=== PATIENT | male | born 1945 | race Caucasian/White ===

== ENCOUNTER → 2019-06-29 | Outpatient (CLI) | payer MEDICARE, OTHER ==
[~2019-06-29] MED LIST: ALBU8.5H5 INH; ASPI-496 PO; ATEN25TA PO; CHOL10003 PO; CHOL40002 PO; EZET1TAB30 PO; FLUT1BLS3 IH; FLUT1DIS3 INH; GLUC-111 PO; IBUP200C8 PO; MONT10TA6 PO; PSYL0.5215 PO; SAW/1TAB2 PO; SAW100PO PO; VALA500T4 PO; VITA1CAP7 PO
[2019-06-29 11:26] LABS: ALBUMIN 4.2 g/dL (3.4-5.0); ANION GAP 6 mmol/L (5-15); CALCIUM 9.3 mg/dL (8.5-10.1); CHLORIDE 108 mmol/L (98-107)
[2019-06-29 11:29] LABS: ALANINE AMINOTRANSFERASE 36 U/L (12-78); ALKALINE PHOSPHATASE 98 U/L (45-117); BILIRUBIN,TOTAL 0.8 mg/dL (0.2-1.0); CREATININE 1.03 mg/dL (0.7-1.3); TOTAL PROTEIN 7.6 g/dL (6.4-8.2)
== END | disposition home or self-care (01) ==
LOC: STAR 10:18
PROVIDERS: ATTEND Orthopaedic Surgery
DX: Z01.818 Encounter for other preprocedural examination (principal); Q66.89 Other specified congenital deformities of feet
CPT/HCPCS: 36415; 80053; 93005

== ENCOUNTER 2019-07-10 10:48 | Day surgery (SDC) | payer MEDICARE, OTHER ==
[~2019-07-10] VITALS: Ht 177.8 cm; Wt 85.8 kg
[2019-07-10] MEDS ORDERED: LACTATED RINGERS 1,000 ML IV ONE (11:02)
[2019-07-10 11:11] VITALS: BP 130/82
[2019-07-10] MEDS ORDERED: MIDAZOLAM 1 MG/ML, 2ML ONE (12:15)
[2019-07-10] MEDS ORDERED: FENTANYL PF 250 MCG/5ML ONE (12:15)
[2019-07-10] MEDS ORDERED: ROPIvacaine/PF 0.2%, 20 ML ONE ×2 (12:21)
[2019-07-10] MEDS ORDERED: HALOPERIDOL 5 MG/ML IV PRN (12:30)
[2019-07-10] MEDS ORDERED: hydrALAzine 20 MG/ML, 1ML IV PRN (12:30)
[2019-07-10] MEDS ORDERED: PROCHLORPERAZINE 5 MG/ML, 2ML IV PRN (12:30)
[2019-07-10] MEDS ORDERED: LABETALOL 5MG/ML, 20ML IV PRN (12:30)
[2019-07-10] MEDS ORDERED: HYDROcodone/APAP 7.5-325MG/15ML UDC PO PRN (12:30)
[2019-07-10] MEDS ORDERED: HYDROmorphone 2 MG/ML, 1ML IVPush PRN (12:30)
[2019-07-10] MEDS ORDERED: OXYcodone 5 MG/5 ML ORAL.SOL UDC PO PRN (12:30)
[2019-07-10] MEDS ORDERED: PROMETHAZINE 25 MG/ML, 1ML IV PRN (12:30)
[2019-07-10] MEDS ORDERED: FENTANYL PF 100 MCG/2ML IV PRN (12:30)
[2019-07-10] MEDS ORDERED: BUPIVACAINE/PF 0.5% ONE (12:44)
[2019-07-10] MEDS ORDERED: LIDOCAINE 1%, 20ML ONE (12:44)
[2019-07-10] MEDS ORDERED: CLINDAMYCIN 150 MG/ML, 6ML ONE (12:53)
[2019-07-10] MEDS ORDERED: PROPOFOL 10 MG/ML, 20ML ONE (13:11)
[2019-07-10] MEDS ORDERED: SUCCINYLCHOLINE 20 MG/ML, 10ML ONE (13:11)
[2019-07-10] MEDS ORDERED: ONDANSETRON 2MG/ML, 2ML ONE (13:11)
[2019-07-10] MEDS ORDERED: DEXAMETHASONE 4 MG/ML, 1ML ONE (13:11)
[2019-07-10] MEDS ORDERED: ROCURONIUM 10 MG/ML,10ML ONE (13:11)
== END 2019-07-10 16:25 | disposition home or self-care (01) ==
LOC: OUT 10:48
PROVIDERS: ATTEND Orthopaedic Surgery
DX: M20.22 Hallux rigidus, left foot (principal); M77.42 Metatarsalgia, left foot; M20.5X2 Other deformities of toe(s) (acquired), left foot; J44.9 Chronic obstructive pulmonary disease, unspecified; G47.33 Obstructive sleep apnea (adult) (pediatric)
CPT/HCPCS: 20680; 28291; 28308; 28750; 73660; C1713; J0330; J1100; J2250; J2405; J2704; J2795; J3010; J7120; 76000